=== PATIENT | female | born 1985 | race Caucasian/White ===

== ENCOUNTER 2022-10-29 03:31 | Emergency (ER) | payer OTHER ==
[~2022-10-29] VITALS: Ht 167.6 cm; Wt 99.3 kg
[2022-10-29 04:05] VITALS: BP 139/97
== END 2022-10-29 04:17 | disposition home or self-care (01) ==
LOC: ED 03:31
DX: M79.645 Pain in left finger(s) (principal); W23.0XXA Caught, crushed, jammed, or pinched between moving objects, initial encounter; Z87.81 Personal history of (healed) traumatic fracture
CPT/HCPCS: 73140; 99283-25

== ENCOUNTER 2024-05-01 08:24 | Emergency (ER) | payer OTHER ==
[~2024-05-01] VITALS: Ht 167.6 cm; Wt 85.9 kg
[~2024-05-01 08:24] MED LIST: LOMOTIL TABLET1 EACH PO; ONDANSETRON ODT8 MG PO
[2024-05-01] MEDS ORDERED: bisacodyL 5 MG TABEC PT ONE (09:45)
[2024-05-01] MEDS ORDERED: DOCUSATE SODIUM 100 MG/10 ML UDC OTIC ONE (09:45)
[2024-05-01 11:09] VITALS: BP 127/68
== END 2024-05-01 11:11 | disposition home or self-care (01) ==
LOC: ED 08:24
DX: T16.2XXA Foreign body in left ear, initial encounter (principal); W44.G9XA Other non-organic objects entering into or through a natural orifice, initial encounter
CPT/HCPCS: 99282